=== PATIENT | female | born 1965 | race Native Hawaiian/Other Pacific Islander ===

== ENCOUNTER 2021-07-29 12:50 | Emergency (ER) | payer OTHER, SELFPAY ==
[2021-07-29] VITALS (67 sets, daily range): BP systolic 70–202; BP diastolic 44–98; PULSE 90–143; RESP 4–56; TEMP 37.2; O2SAT 33–94
--- NOTE | 2021-07-29 13:07 | ED_ITS ---
HPI - General Adult General Chief complaint: Shortness of Breath/Dyspnea Stated complaint: COVID+ Trouble breathing Time Seen by Provider: 07/29/21 12:50 Source: family Mode of arrival: Wheelchair History of Present Illness HPI narrative: 56-year-old woman with history of hypertension under vaccinated began having COVID symptoms 6 days ago with COVID positive test with initial symptoms. Presents to the emergency room in extremis, severe respiratory distress unable to answer questions and globally weak. Her is available to supply additional history. She is emergently taken to room 1 to began resuscitation. Related Data Previous Rx's Medication Instructions Recorded losartan 50 mg-hydrochlorothiazide 1 tab PO DAILY #90 tab 04/09/20 12.5 mg tablet meclizine 25 mg tablet 25 mg PO TID #30 tab 04/09/20 Allergies Allergy/AdvReac Type Severity Reaction Status Date / Time No Known Allergies Allergy Uncoded 07/29/21 13:03 Review of Systems Review of Systems ROS Unobtainable: Unobtainable due to mental status/LOC Patient History Medical History (Updated 07/29/21 @ 16:02 by Vi Plummer MD) COVID-19 Dizziness Hypertension Social History Smoking Status: Never smoker Smoking Status: Never smoker Exam Narrative Exam Narrative: General: Severe respiratory distress with altered mental status, mottled, mercedes with dry mucous membranes HEENT: mucous membranes, normal sclera with reactive pupils, Neck: No JVD, supple Respiratory: Tachypneic with significant rhonchi in all lung cheek, minimal wheezing Cardiac: Tachycardic without murmurs Abdomen: Soft, nontender, no significant distension Skin: Cool mottled extremities and models over torso as well Neurologic: Moving all extremities, globally weak, significantly altered mental status and unable to answer questions Extremities: No trauma, poorly perfused Psych: Acutely delirious Initial Vital Signs Initial Vital Signs: Vital Signs Pulse Rate 139 H 07/29/21 12:59 Respiratory Rate 44 H 07/29/21 12:59 Blood Pressure 172/70 H 07/29/21 12:59 Pulse Oximetry 33 L 07/29/21 12:59 Procedures Central Line Placement Right IJ: Time of procedure: 14:05 Time Out Performed: Yes Patient Placed on Monitor/Pulse Ox: Yes MD Prep: mask, gown and gloves Central Line Prep: Chlorhexidine scrub Ultrasound Used for Placement: Yes Central Line Lumen Inserted: triple Post Procedure: sutured in place, good blood return, all ports aspirated, flushed, capped and sterile dressing applied Post Procedure X-Ray: other (tip in superior vena cava. appears to be coiled once in vessel itself at level of clavicle. Flushing and drawing well. Not adjusted a this time) Intubation Time of Intubation: 14:00 Time out performed: Yes sedative: Etomidate Mg Given: 20 paralytic: Succinylcholine Mg Given: 100 Laryngoscope: fiber optic video scope ET Tube Size: 7.5 Tube Secured Depth (cm): 24 Tube Secured Location: teeth Tube Placement Confirmation: Visualized tube passing through cords, Equal breath sounds bilaterally, Confirmation by capnometry and Chest Xray Patient Tolerated Procedure: Well Intubation Complications: none Course Orders Ordered: ED Orders 07/29/21 13:12 Arterial Blood Gas Routine Arterial Blood Gas Stat 07/29/21 13:20 C-Reactive Protein Quant Stat Complete Blood Count AUTO DIFF Stat Comprehensive Metabolic Panel Stat Ferritin Stat Lactate (Lactic Acid) Stat Lactate Dehydrogenase Stat NT-proBNP (BNP-Adult 18+) Stat Procalcitonin Stat Troponin & CK Cardiac Panel Stat 07/29/21 13:24 High flow/High humidity nasal STAT 07/29/21 13:25 CT chest wo con Stat 07/29/21 13:30 Blood Culture Stat 07/29/21 13:57 XR chest 1V Stat 07/29/21 14:40 Respiratory Panel (Film Array) Stat Sodium Chloride (Normal Saline 0.9%) 1,000 mls @ 125 mls/hr IV CONT BRIAN Last Admin: 07/29/21 15:16 Dose: 125 mls/hr Documented by: ROLANDA Propofol (Propofol) 1,000 mg in 100 mls @ 1.905 mls/hr IV TITRATE BRIAN; Protocol Last Titration: 07/29/21 16:00 Dose: 5 mcg/kg/min, 1.905 mls/hr Documented by: Titration: 07/29/21 15:45 Dose: 10 mcg/kg/min, 3.81 mls/hr Documented by: Titration: 07/29/21 15:30 Dose: 15 mcg/kg/min, 5.715 mls/hr Documented by: Titration: 07/29/21 15:10 Dose: 20 mcg/kg/min, 7.62 mls/hr Documented by: Titration: 07/29/21 15:00 Dose: 15 mcg/kg/min, 5.715 mls/hr Documented by: Titration: 07/29/21 14:42 Dose: 10 mcg/kg/min, 3.81 mls/hr Documented by: Titration: 07/29/21 14:23 Dose: 15 mcg/kg/min, 5.715 mls/hr Documented by: Admin: 07/29/21 13:41 Dose: 5 mcg/kg/min, 1.905 mls/hr Documented by: PAMELA Propofol (Propofol) 1,000 mg in 100 mls @ 1.905 mls/hr IV TITRATE BRIAN; Protocol Last Admin: 07/29/21 14:54 Dose: Not Given Documented by: PAMELA Fentanyl 1,000 mcg/ Dextrose 250 mls @ 11.113 mls/hr IV TITRATE BRIAN; Protocol Discontinued Medications Dexamethasone (Dexamethasone 10 Mg/Ml Vial) 6 mg IV NOW ONE Stop: 07/29/21 13:26 Last Admin: 07/29/21 13:38 Dose: 6 mg Documented by: PAMELA Fentanyl (Fentanyl 100 Mcg/2 Ml Inj) 100 mcg IV NOW ONE Stop: 07/29/21 15:50 Last Admin: 07/29/21 15:52 Dose: 50 mcg Documented by: ROLANDA Furosemide (Furosemide 40 Mg/4 Ml Vial) 40 mg IV NOW ONE Stop: 07/29/21 13:48 Last Admin: 07/29/21 13:53 Dose: 40 mg Documented by: PAMELA Furosemide (Furosemide 40 Mg/4 Ml Vial) 40 mg IV NOW ONE Stop: 07/29/21 13:53 Last Admin: 07/29/21 13:53 Dose: Not Given Documented by: PAMELA Rocuronium [place] (Rocuronium 100 Mg/10 Ml Vial) 38 mg 0.6 mg/kg (38 mg) IV NOW ONE Stop: 07/29/21 14:15 Last Admin: 07/29/21 14:23 Dose: 38 mg Documented by: FHUDSON Vital Signs Vital signs: Vital Signs - 8 hr 07/29/21 12:59 07/29/21 13:05 07/29/21 13:08 Temperature 98.9 F Pulse Rate 139 H Respiratory Rate 44 H Blood Pressure 172/70 H 202/97 H Pulse Oximetry 33 L 07/29/21 13:09 07/29/21 13:30 07/29/21 13:39 Temperature Pulse Rate 141 H 127 H 143 H Respiratory Rate 39 H 44 H 17 Blood Pressure 199/95 H 184/86 H Pulse Oximetry 80 L 62 L 41 L 07/29/21 13:42 07/29/21 13:43 07/29/21 13:45 Temperature Pulse Rate 137 H 135 H 137 H Respiratory Rate 16 20 29 H Blood Pressure 168/84 H 162/80 H 177/95 H Pulse Oximetry 73 L 74 L 81 L 07/29/21 13:48 07/29/21 13:51 07/29/21 13:55 Temperature Pulse Rate 132 H 130 H 124 H Respiratory Rate 33 H 47 H 44 H Blood Pressure 138/67 150/78 H 109/59 L Pulse Oximetry 85 L 75 L 75 L 07/29/21 13:57 07/29/21 14:00 07/29/21 14:03 Temperature Pulse Rate 118 H 116 H 122 H Respiratory Rate 38 H 52 H 39 H Blood Pressure 93/57 L 93/53 L 132/66 Pulse Oximetry 65 L 69 L 67 L 07/29/21 14:06 07/29/21 14:09 07/29/21 14:12 Temperature Pulse Rate 120 H 117 H 120 H Respiratory Rate 56 H 54 H 38 H Blood Pressure 141/69 H 149/74 H 150/72 H Pulse Oximetry 69 L 71 L 74 L 07/29/21 14:15 07/29/21 14:18 07/29/21 14:21 Temperature Pulse Rate 115 H 114 H 118 H Respiratory Rate 41 H 40 H 55 H Blood Pressure 143/71 H 143/67 H 147/75 H Pulse Oximetry 74 L 74 L 73 L 07/29/21 14:24 07/29/21 14:27 07/29/21 14:30 Temperature Pulse Rate 118 H 113 H 113 H Respiratory Rate 37 H 28 H 28 H Blood Pressure 151/69 H 115/57 L 114/56 L Pulse Oximetry 75 L 86 L 85 L 07/29/21 14:33 07/29/21 14:36 07/29/21 14:39 Temperature Pulse Rate 114 H 112 H 110 H Respiratory Rate 28 H 28 H 28 H Blood Pressure 118/63 108/56 L 91/50 L Pulse Oximetry 88 L 89 L 89 L 07/29/21 14:42 07/29/21 14:45 07/29/21 14:48 Temperature Pulse Rate 109 H 107 H 113 H Respiratory Rate 28 H 28 H 28 H Blood Pressure 86/50 L 86/51 L 125/83 Pulse Oximetry 89 L 89 L 90 L 07/29/21 14:51 07/29/21 14:54 07/29/21 14:57 Temperature Pulse Rate 119 H 114 H 118 H Respiratory Rate 28 H 28 H 28 H Blood Pressure 134/72 140/72 168/88 H Pulse Oximetry 93 92 92 07/29/21 15:00 07/29/21 15:08 07/29/21 15:10 Temperature Pulse Rate 120 H 126 H 123 H Respiratory Rate 28 H 28 H 28 H Blood Pressure 171/84 H 174/98 H 178/95 H Pulse Oximetry 93 93 94 07/29/21 15:15 07/29/21 15:20 07/29/21 15:25 Temperature Pulse Rate 117 H 114 H 107 H Respiratory Rate 29 H 29 H 30 H Blood Pressure 150/82 H 133/59 L 110/61 Pulse Oximetry 94 94 92 07/29/21 15:30 07/29/21 15:35 07/29/21 15:40 Temperature Pulse Rate 114 H 109 H 103 H Respiratory Rate 33 H 34 H 34 H Blood Pressure 134/69 109/59 L 100/51 L Pulse Oximetry 92 92 91 07/29/21 15:45 07/29/21 15:50 07/29/21 15:56 Temperature Pulse Rate Respiratory Rate Blood Pressure 97/53 L 161/70 H 88/53 L Pulse Oximetry 07/29/21 16:00 07/29/21 16:05 07/29/21 16:08 Temperature Pulse Rate 102 H 100 H 99 H Respiratory Rate 32 H 34 H 36 H Blood Pressure 73/44 L 70/46 L 86/58 L Pulse Oximetry 88 L 88 L 88 L 07/29/21 16:10 07/29/21 16:12 07/29/21 16:14 Temperature Pulse Rate 96 H 99 H 97 H Respiratory Rate 35 H 36 H 34 H Blood Pressure 105/60 106/64 107/55 L Pulse Oximetry 89 L 90 L 90 L 07/29/21 16:16 07/29/21 16:18 07/29/21 16:20 Temperature Pulse Rate 92 H 95 H 96 H Respiratory Rate 31 H 32 H 33 H Blood Pressure 99/57 L 96/62 107/63 Pulse Oximetry 90 L 90 L 90 L Medical Decision Making Lab Data Result diagrams: 07/29/21 13:20 07/29/21 13:20 Labs: Lab Results 07/29/21 07/29/21 07/29/21 Range/Units 13:12 13:20 13:20 WBC 10.3 (4.5-11.0) X10^3/uL RBC 4.55 (4.0-5.2) X10^6/uL Hgb 13.7 (12.0-16.0) g/dL Hct 41.4 (36-46) % MCV 91.0 (80-100) fL MCH 30.1 (26-34) PG MCHC 33.0 (30-36) % RDW 13.6 (11.6-14.8) % Plt Count 155 (150-400) X10^3/uL Neut % (Auto) 71.4 (50-75) % Lymph % (Auto) 24.7 L (25-40) % [place] % (Auto) 3.8 (3-14) % Eos % (Auto) 0.0 L (2-4) % Baso % (Auto) 0.1 (0-2) % Neut # (Auto) 7400 H (4106-8787) /uL Lymph # (Auto) 2600 (6026-3486) /uL [place] # (Auto) 400 (0-900) /uL Eos # (Auto) 0 (0-450) /uL Baso # (Auto) 0 (0-100) /uL ABG pH 7.26 L* (7.35-7.45) ABG pCO2 45.1 H (35-45) mmHg ABG pO2 51 L (80-100) mmHg ABG HCO3 20 L (22-26) mmol/L ABG Total CO2 22 (21-31) mmol/L ABG O2 Saturation 80 L* (95-100) % ABG Base Excess -7.0 L (-2-2) mmol/L FiO2 100 Sodium 127 L (137-145) mmol/L Potassium 3.2 L (3.4-5.1) mmol/L Chloride 88 L (98-107) mmol/L Carbon Dioxide 16 L (22-32) mmol/L BUN 10 (7-17) mg/dL Creatinine 0.87 (0.52-1.04) mg/dL Estimated GFR > 60.0 (>60) mL/min BUN/Creatinine Ratio 11.5 (6-22) Glucose 354 H (70-100) mg/dL Lactate (0.7-2.1) mmol/L Calcium 7.9 L (8.4-10.2) mg/dL Ferritin > 1000 H (11-264) ng/mL Total Bilirubin 0.4 (0.2-1.3) mg/dL AST 145 H (14-36) IU/L ALT 89 H (<35) IU/L Alkaline Phosphatase 44 (38-126) U/L Lactate Dehydrogenase 2304 H (313-618) U/L Total Creatine Kinase 1236 H (30-135) U/L CK-MB (CK-2) 4.88 H (<2.37) ng/mL CK-MB (CK-2) Rel Index 0.4 L (1.5-5.0) % Troponin I 0.076 H (0.01-0.034) ng/mL C-Reactive Protein 6.2 H (<1.0) mg/dL NT-Pro-B Natriuret Pep 2020 H (<125) pg/mL Total Protein 6.7 (6.3-8.2) g/dL Albumin 3.6 (3.5-5.0) g/dL Globulin 3.1 (1.7-4.1) g/dL Albumin/Globulin Ratio 1.2 (1.0-2.8) Procalcitonin 0.17 (<0.5) ng/mL Chlamy pneumoniae PCR (Not Detect) Adenovirus (PCR) (Not Detect) B. pertussis DNA (PCR) (Not Detecte) B.parapertussis DNA PCR (Not Detecte) Coronavirus OC43 (PCR) (Not Detect) Coronavirus HKU1 (PCR) (Not Detect) Coronavirus 229E (PCR) (Not Detect) SARS-CoV-2 (PCR) (Not Detecte) Coronavirus NL63 (PCR) (Not Detect) Human Metapneumovir PCR (Not Detect) Influenza Type A (PCR) (Not Detect) Influenza Type B (PCR) (Not Detect) M. pneumoniae (PCR) (Not Detect) Parainfluenza 1 (PCR) (Not Detect) Parainfluenza 2 (PCR) (Not Detect) Parainfluenza 3 (PCR) (Not Detect) Parainfluenza 4 (PCR) (Not Detect) RSV (PCR) (Not Detect) Entero/Rhino (PCR) (Not Detect) 07/29/21 07/29/21 07/29/21 Range/Units 13:20 13:20 14:40 WBC (4.5-11.0) X10^3/uL RBC (4.0-5.2) X10^6/uL Hgb (12.0-16.0) g/dL Hct (36-46) % MCV (80-100) fL MCH (26-34) PG MCHC (30-36) % RDW (11.6-14.8) % Plt Count (150-400) X10^3/uL Neut % (Auto) (50-75) % Lymph % (Auto) (25-40) % [place] % (Auto) (3-14) % Eos % (Auto) (2-4) % Baso % (Auto) (0-2) % Neut # (Auto) (6066-4180) /uL Lymph # (Auto) (7052-9949) /uL [place] # (Auto) (0-900) /uL Eos # (Auto) (0-450) /uL Baso # (Auto) (0-100) /uL ABG pH (7.35-7.45) ABG pCO2 (35-45) mmHg ABG pO2 (80-100) mmHg ABG HCO3 (22-26) mmol/L ABG Total CO2 (21-31) mmol/L ABG O2 Saturation (95-100) % ABG Base Excess (-2-2) mmol/L FiO2 Sodium (137-145) mmol/L Potassium (3.4-5.1) mmol/L Chloride (98-107) mmol/L Carbon Dioxide (22-32) mmol/L BUN (7-17) mg/dL Creatinine (0.52-1.04) mg/dL Estimated GFR (>60) mL/min BUN/Creatinine Ratio (6-22) Glucose (70-100) mg/dL Lactate 15.5 H* (0.7-2.1) mmol/L Calcium (8.4-10.2) mg/dL Ferritin (11-264) ng/mL Total Bilirubin (0.2-1.3) mg/dL AST (14-36) IU/L ALT (<35) IU/L Alkaline Phosphatase (38-126) U/L Lactate Dehydrogenase (313-618) U/L Total Creatine Kinase (30-135) U/L CK-MB (CK-2) (<2.37) ng/mL CK-MB (CK-2) Rel Index (1.5-5.0) % Troponin I (0.01-0.034) ng/mL C-Reactive Protein (<1.0) mg/dL NT-Pro-B Natriuret Pep Cancelled (<125) pg/mL Total Protein (6.3-8.2) g/dL Albumin (3.5-5.0) g/dL Globulin (1.7-4.1) g/dL Albumin/Globulin Ratio (1.0-2.8) Procalcitonin (<0.5) ng/mL Chlamy pneumoniae PCR Not detected (Not Detect) Adenovirus (PCR) Not detected (Not Detect) B. pertussis DNA (PCR) Not detected (Not Detecte) B.parapertussis DNA PCR Not detected (Not Detecte) Coronavirus OC43 (PCR) Not detected (Not Detect) Coronavirus HKU1 (PCR) Not detected (Not Detect) Coronavirus 229E (PCR) Not detected (Not Detect) SARS-CoV-2 (PCR) Detected H (Not Detecte) Coronavirus NL63 (PCR) Not detected (Not Detect) Human Metapneumovir PCR Not detected (Not Detect) Influenza Type A (PCR) Not detected (Not Detect) Influenza Type B (PCR) Not detected (Not Detect) M. pneumoniae (PCR) Not detected (Not Detect) Parainfluenza 1 (PCR) Not detected (Not Detect) Parainfluenza 2 (PCR) Not detected (Not Detect) Parainfluenza 3 (PCR) Not detected (Not Detect) Parainfluenza 4 (PCR) Not detected (Not Detect) RSV (PCR) Not detected (Not Detect) Entero/Rhino (PCR) Not detected (Not Detect) Imaging Data Chest x-ray: Radiologist's Impression: FINDINGS:? ? Surgical changes and devices:? ET tube tip projects approximately 5.2 cm above the kavitha.? ? Lungs and pleura:? Extensive patchy bilateral interstitial and alveolar infiltrates.? Probable right pleural effusion.? No pleural effusions or pneumothorax.? ? Mediastinum:? Mediastinal contours appear normal.? Heart size is normal.? ? Bones and chest wall:? No suspicious bony lesions.? Overlying soft tissues appea r unremarkable.? ? IMPRESSION: ? 1. ET tube in satisfactory position. ? 2. Extensive patchy bilateral interstitial and alveolar infiltrates.? Probable right pleural effusion.? Findings may potentially represent COVID-19 pneumonia or other infectious process. ? ? Dictated by: Radames Jiang M.D. on 07/29/2021 at 14:33 ?? [facility] Narrative Medical decision making narrative: 56-year-old woman with a history of hypertension presents on day 6 of COVID infection with severe respiratory distress. On arrival in the emergency room she is mottled, dramatically hypoxic with significantly altered mental status. She is immediately placed on oxygen and rapidly escalated to high-flow. On high-flow oxygen, 100%, 60 L, pH is 7.189 CO2 of 42.5 O2 of 54 with sats at 80%. Shortly thereafter began rapidly declining and we were unable to get sats above 60 with increasing mottling suggesting that this was in fact accurate. after a brief discussion with her , we moved to intubation. Intubated with 7.5 tube without difficulty. Copious amounts of bloody frothy sputum returned through the ET tube. After this, central line was placed. The line itself seems to be coiled once inside the vessel at approximately the level clavicle however the tip itself does appear to be in the superior vena cava in adjustments are not made at this time. At a rate of 14 with tidal volumes of 400 range and PEEP at 20 we were still thaddeus ble to oxygenate well. Rocuronium was added and increased sedation in the form of propofol drip was continued. This helped moderately. Additional medications include 40 mg of IVfurosemide, 6 mg of IV Decadron. Pressures have been significantly elevated to normal. With increasing propofol her pressure does begin to come down. IV pressors have not been required at this time. With no sign of bacterial infection antibiotics have not been initiated. Labs are all consistent with severe COVID pneumonia as is chest x- ray. CT scan of the chest is ordered however she is too critically ill to go to the CT scanner at this time. Reviewed with hospitalist at [place] and given the severity of her disease, the significant hypoxia after intubation and anticipated need for pronating she will need to be transferred. [facility] has a bed available and care is reviewed with , acting teacher. He accepts the patient. Findings and concerns are reviewed with patient's as well as her 2 teenage daughters. Discussed the severity of her disease and the poor prognosis at this time. All of them are allowed back into the emergency room to say goodbye to her mother prior to transfer. [facility] currently has a no visitor policy with COVID patients. 4pm inceasing hypotension. propofol weaned down to off, single 50mcg dose fentanyl given prior to fentanyl gtt availability. Levophed started. Transport available. Additional Information: [facility] ICU rm [id number] Mcintosh. Nurse to call [phone] [id number] for report Critical Care Time Critical Care Time Critical Care Time: Yes Total Critical Care Time: 42 Attestation: Critical care time is separate from other billable procedures. There is a high probability of a significant, sudden or life-threatening deterioration that requires my full and direct attention, intervention and personal management. This critical care time includes consultation with family and other consulting doctors, review of records, and interpretation of data from labs, EKGs and imaging as well as managements of acute respiratory failure secondary to COVID pneumonia Discharge Plan Departure Patient Disposition: [facility] Clinical Impression: Pneumonia due to 2019 novel coronavirus, Respiratory failure with hypoxia, Acute hyponatremia, Acute hypokalemia Prescriptions: No Action losartan-hydrochlorothiazide 50-12.5 mg tablet 1 tab PO DAILY Qty: 90 0RF meclizine 25 mg tablet 25 mg PO TID Qty: 30 0RF Referrals: Dorene Roberts DO [Primary Care Provider] -
--- NOTE | 2021-07-29 13:25 | PC.NURSE ---
Pt history obtained from spouse. MD at bedside. Pt very weak, unable to speak due to severe respiratory distress. Crackles throughout lungs, shallow/labored. NRB applied, Respiratory therapy called and heated high flow started.
[2021-07-29] MEDS: DEXAMETHASONE 10 MG/ML VIAL 6 MG IV (13:38)
[2021-07-29 13:39] LABS: Add Manual Diff / Slide Review NO; Basophils Absolute Auto 0 /uL (0-100); Basophils Percent Auto 0.1 % (0-2); Eosinophils Absolute Auto 0 /uL (0-450); Hematocrit 41.4 % (36-46); Hemoglobin 13.7 g/dL (12.0-16.0); Lymphocytes Absolute Auto 2600 /uL (1100-4500); Lymphocytes Percent Auto 24.7 % (25-40); Mean Corpuscular Hemoglobin 30.1 PG (26-34); Monocytes Absolute Auto 400 /uL (0-900); Monocytes Percent Auto 3.8 % (3-14); Neutrophils Absolute Auto 7400 /uL (1500-7000); Neutrophils Percent Auto 71.4 % (50-75); Platelet Count 155 X10^3/uL (150-400); Red Blood Cell Count 4.55 X10^6/uL (4.0-5.2); Red Cell Distribution Width 13.6 % (11.6-14.8); White Blood Cell Count 10.3 X10^3/uL (4.5-11.0)
[2021-07-29] MEDS: propofoL 1,000 MG/100 ML VIAL 1.905 MG IV (13:41)
[2021-07-29] MEDS: FUROSEMIDE 40 MG/4 ML VIAL IV (13:53)
--- NOTE | 2021-07-29 13:54 | PC.NURSE ---
1330 patient increase work of breathing. Set up for intubation. Two Rn at bedside, Dr Plummer and RT. Patient medicated with Etomidate 20mg and Succs 100mg IV. Intubated with 7.5 ET tube. Patient received Propofol 40mg IV Push 1345,1350,1355, verbal order per Dr Plummer at bedside. On a drip of propofol for sedation. 1357 Central line placed right side of neck by Dr Plummer.
[2021-07-29 13:55] LABS: Albumin 3.6 g/dL (3.5-5.0); Albumin Globulin Ratio 1.2 (1.0-2.8); Alkaline Phosphatase 44 U/L (38-126); Aspartate Aminotransferase 145 IU/L (14-36); BUN Creatinine Ratio 11.5 (6-22); Bilirubin Total 0.4 mg/dL (0.2-1.3); Blood Urea Nitrogen 10 mg/dL (7-17); C-Reactive Protein Quant 6.2 mg/dL (<1.0); Calcium 7.9 mg/dL (8.4-10.2); Carbon Dioxide 16 mmol/L (22-32); Chloride 88 mmol/L (98-107); Creatine Kinase 1236 U/L (30-135); Estimated Glomerular Filt Rate > 60.0 mL/min (>60); Globulin 3.1 g/dL (1.7-4.1); Glucose 354 mg/dL (70-100); HEMOLYSIS 24 (0-50); Potassium 3.2 mmol/L (3.4-5.1); Sodium 127 mmol/L (137-145); Total Protein 6.7 g/dL (6.3-8.2)
--- NOTE | 2021-07-29 13:57 | DI.RAD.S_ITS ---
PROCEDURE: XR CHEST 1V INDICATIONS: post intubation TECHNIQUE: One view of the chest was acquired. COMPARISON: None. FINDINGS: Surgical changes and devices: ET tube tip projects approximately 5.2 cm above the kavitha. Lungs and pleura: Extensive patchy bilateral interstitial and alveolar infiltrates. Probable right pleural effusion. No pleural effusions or pneumothorax. Mediastinum: Mediastinal contours appear normal. Heart size is normal. Bones and chest wall: No suspicious bony lesions. Overlying soft tissues appear unremarkable. IMPRESSION: 1. ET tube in satisfactory position. 2. Extensive patchy bilateral interstitial and alveolar infiltrates. Probable right pleural effusion. Findings may potentially represent COVID-19 pneumonia or other infectious process. Dictated by: Radames Jiang M.D. on 07/29/2021 at 14:33 Approved by: Radames Jiang M.D. on 07/29/2021 at 14:35
[2021-07-29 14:00] LABS: Alanine Aminotransferase 89 IU/L (<35)
[2021-07-29 14:06] LABS: NT-proBNP (BNP-Adult 18+) 2020 pg/mL (<125); Troponin I 0.076 ng/mL (0.01-0.034)
[2021-07-29 14:09] LABS: CKMB % Relative Index 0.4 % (1.5-5.0); Creatine Kinase MB 4.88 ng/mL (<2.37)
[2021-07-29 14:10] LABS: Procalcitonin 0.17 ng/mL (<0.5)
[2021-07-29 14:18] LABS: Lactate (Lactic Acid) 15.5 mmol/L (0.7-2.1); Lactate Dehydrogenase 2304 U/L (313-618)
[2021-07-29] MEDS: ROCURONIUM 100 MG/10 ML VIAL 38 MG IV (14:23)
[2021-07-29 14:31] LABS: Ferritin > 1000 ng/mL (11-264)
[2021-07-29] MEDS: SODIUM CHLORIDE 0.9% 1,000 ML 125 ML IV (15:16)
[2021-07-29 15:33] LABS: Reflexed Lactate in 2 Hours Y
--- NOTE | 2021-07-29 15:41 | PC.NURSE ---
Respiratory Panal Confirmed COVID+ by Heather in Lab
[2021-07-29 15:47] LABS: Adenovirus Not Detected (Not Detect); B. parapertussis Not Detected (Not Detecte); Bordetella pertussis Not Detected (Not Detecte); Chlamydophila pneumoniae Not Detected (Not Detect); Coronavirus 229E Not Detected (Not Detect); Coronavirus HKU1 Not Detected (Not Detect); Coronavirus NL 63 Not Detected (Not Detect); Coronavirus OC43 Not Detected (Not Detect); Human Metapneumovirus Not Detected (Not Detect); Human Rhinovirus/Enterovirus Not Detected (Not Detect); Influenza A Not Detected (Not Detect); Influenza B Not Detected (Not Detect); Mycoplasma pneumoniae Not Detected (Not Detect); Parainfluenza Virus 1 Not Detected (Not Detect); Parainfluenza Virus 2 Not Detected (Not Detect); Parainfluenza Virus 3 Not Detected (Not Detect); Parainfluenza Virus 4 Not Detected (Not Detect); Respiratory Syncytial Virus Not Detected (Not Detect); SARS- CoV-2 Detected (Not Detecte)
[2021-07-29] MEDS: fentaNYL 100 MCG/2 ML INJ IV (15:52)
[2021-07-29] MEDS: NOREPINEPHRINE BITARTRATE/D5W 4 MG/250 ML PLAST..BAG 30 MG IV (16:12)
--- NOTE | 2021-07-29 16:15 | PC.NURSE ---
Pt with increased agitation, though hypotensive with increase in propofol. MD aware, fent drip ordered. 50mcg Fent given while waiting for drip to come from pharmacy. Pt BP 76/44, MD notified, Levophed drip started at 8mcg. BP back to normal range. See vitals flow sheet. 1645: Medics arrived for transport. 1700: Fentanyl drip started. Vitals remain stable. RT in room to assist with transfer of ventilator and then to stretcher. 1720: Pt d/c
[2021-07-29 16:20] LABS: HCO3 ABG 20 mmol/L (22-26); PCO2 ABG 45.1 mmHg (35-45); PO2 ABG 51 mmHg (80-100); pH ABG 7.26 (7.35-7.45)
[2021-07-29 16:21] LABS: Fractionated Inspired Oxygen 100; Oxygen Saturation ABG 80 % (95-100); TCO2 ABG 22 mmol/L (21-31)
[2021-07-29 16:33] LABS: HCO3 ABG 16 mmol/L (22-26); Oxygen Saturation ABG 80 % (95-100); PCO2 ABG 42.5 mmHg (35-45); PO2 ABG 54 mmHg (80-100); TCO2 ABG 17 mmol/L (21-31); pH ABG 7.19 (7.35-7.45)
[2021-07-29 16:34] LABS: Fractionated Inspired Oxygen 100
[2021-07-29] MEDS: fentaNYL 1,000 MCG in DEXTROSE 5% IN WATER 230 ML 11.113 ML IV (16:36)
== END 2021-07-29 17:30 | disposition short-term general hospital (02) ==
PROVIDERS: Emergency Provider Emergency Medicine; Family Provider Family Medicine; PCP Family Medicine
DX: U07.1 COVID-19 (principal); J12.82 Pneumonia due to coronavirus disease 2019; J96.91 Respiratory failure, unspecified with hypoxia; E87.1 Hypo-osmolality and hyponatremia; E87.6 Hypokalemia
CPT/HCPCS: 36415; 36600; 71045; 80053; 82550; 82553; 82728; 82805; 83605; 83615; 83880; 84145; 84484; 85025; 86140; 87040; 87633; 94002; 94799; 99285; 99291; 99292; J1100; J1940; J2704; J3010